=== PATIENT | male | born 1945 | race Caucasian/White ===

== ENCOUNTER 2021-01-27 09:02 | Outpatient (CLI) | payer MEDICARE, OTHER, SELFPAY | END 2021-01-27 09:03 | disposition home or self-care (01) | LOC: SLEEP 09:04 | PROVIDERS: PCP Internal Medicine; Visit Provider Internal Medicine | DX: G47.10 Hypersomnia, unspecified (principal) | CPT/HCPCS: G0399 ==

== ENCOUNTER 2021-08-16 10:19 | Emergency (ER) | payer MEDICARE, SELFPAY ==
[2021-08-16 10:25] VITALS: BP 170/114; PULSE 90; RESP 18; TEMP 36.4; O2SAT 96; BMI 26.4
[2021-08-16 10:54] LABS: Bilirubin Urine Neg (Negative); Blood Urine 3+ (Negative); Glucose Urine UA Norm (Normal); Ketones Urine Negative (Negative); Leukocyte Esterase Urine Negative (Negative); Nitrate Urine Negative (Negative); Protein Urine Trace (Negative); Specific Gravity, Urine 1.005 (1.005-1.030); Urine Appearance Bloody (CLEAR); Urine Color Red (Yellow); Urobilinogen Urine Norm (Negative); pH Urine 6.5 (5-7)
[2021-08-16 10:55] LABS: Add Urine Microscopic? YES
[2021-08-16 10:56] LABS: RBC Urine TOO NUMEROUS TO CNT /hpf (0-2)
[2021-08-16 10:57] LABS: Add Urine Culture? Yes; WBC Urine RARE /hpf (0-5)
--- NOTE | 2021-08-16 11:25 | ED_ITS ---
HPI - Male Genitourinary General: Chief complaint: Urogenital-Male Stated complaint: Urinating blood for 2 days Time Seen by Provider: 08/16/21 11:25 History of Present Illness: Mr. Gomes is a 76-year-old gentleman with significant past medical history of renal cancer status post nephrectomy a number of years ago who presents to the emergency department due to hematuria. He first noticed symptoms subacutely approximately 2 days ago. Since that time he has had dark red urine associated with mild persistent stinging sensation at the distal end of his penis. He is not on anticoagulation and denies similar episodes in the past. He cannot think of any specific provoking events or factors. He does have a history of BPH as well on medications. No other specific changes in health, exacerbating, or alleviating factors identified. Onset (ago): day(s) Duration: constant Severity: moderate Associated symptoms: Reports no associated symptoms Review of Systems General: Reports: 10 or more systems reviewed and unremarkable except in HPI and below PFSH ED PFSH: Medical History Gross hematuria Family History Father , AT 83 Heart attack Mother , IN HER 70'S Diabetes Social History Smoking and tobacco status: never smoked Alcohol intake: never Marital status: Current occupational status: retired History of recent travel: No Physical Exam Const: COMMON NORMALS: alert GENERAL APPEARANCE: cooperative and well developed HENMT: COMMON NORMALS: normocephalic and atraumatic HEAD & SCALP: normocephalic and atraumatic Eye: COMMON NORMALS: conjunctivae normal CONJUNCTIVA: Yes conjunctivae normal SCLERA: sclerae normal Neck/C-Spine: COMMON NORMALS: supple GENERAL: Yes trachea midline Resp: COMMON NORMALS: normal respiratory effort EFFORT & INSPECTION: Yes able to speak in complete sentences Cardio: COMMON NORMALS: regular rate and regular rhythm RATE: regular rate RHYTHM: regular rhythm GI: COMMON NORMALS: Soft to palpation PALPATION: Yes Soft to palpation and No Tenderness to palpation present (GI) PERCUSSION: normal to percussion : COMMON NORMALS: Yes Testes normal PENIS: normal penis Extremity: GENERAL: Yes normal exam except as noted and No edema Neuro: COMMON NORMALS: moves all extremities SENSORIUM/ORIENTATION: Yes alert and No Orientation impaired Psych: COMMON NORMALS: mental status grossly normal and Normal thought process present THOUGHT PROCESS: Normal thought process present Course ED course: - Patient was seen and evaluated by me at bedside -Vital signs obtained - Initial evaluation notable for exam as above - Labs notable for normal hemoglobin. Urinalysis with blood noted, no evidence of infection - Imaging notable for normal right kidney without evidence of hydronephrosis or other acute pathology, no significant clot burden noted in bladder -Based on findings I do not believe that patient needs Ayon catheter or irrigation. I discussed case with Dr. Philippe of the urology service, he is able to see patient early this week. - Upon serial reexamination after treatment the patient was similar - Based on patient history, evaluation, and testing as interpreted the most li iraida cause of the patient's condition is gross hematuria. Patient did express concern regarding hypertension even though he has been taking his medications, this may be contributing to continued bleeding and I will add amlodipine to his medication regimen. - The results of ED evaluation were discussed with the patient including prescriptions and/or symptomatic cares (if applicable) including appropriate and responsible use, followup plan, and return precautions. The patient verbalized understanding and felt safe for discharge. - Patient discharged in satisfactory condition. Note: Click bubbles or prepopulated hodges in note writing are used for assistance with data collection and billing and are inherently more limited than narrative and other text portions of this note. Please use narrative for additional clinical history and defer to narrative/free test for any case of contradictory information. If information appears in only free text or click bubble it should be considered present or absent as reported. Please contact note mortgage or loan underwriter for clarifications of clinical information or contradictory information. MDM is a brief summary, contradictory or erroneous seeming information should be clarified and full note should be reviewed. Vital Signs: Vital signs: Vital Signs Temperature 97.5 F L 08/16/21 10:25 Pulse Rate 76 08/16/21 14:02 Respiratory Rate 16 08/16/21 14:02 Blood Pressure 182/118 08/16/21 14:02 Pulse Oximetry 94 08/16/21 14:02 MDM - Male Medical Decision Making 76-year-old gentleman with history of nephrectomy remotely presenting with hematuria. No evidence of acute clot retention or significant abdominal discomfort. Ultrasound without evidence of hydronephrosis or significant clot burden. Discussed with urology, patient to have close outpatient follow-up. Satisfactory for discharge. Medical Records I reviewed the patient's medical records. Lab Data I reviewed the patient's lab results. : 08/16/21 11:47 08/16/21 11:47 Radiology Impressions Renal Ultrasound 08/16/21 11:40 IMPRESSION: Unremarkable right kidney. Left kidney surgically removed. Laboratory Results WBC 8.7 10^3/uL (4.0-10.0) 08/16/21 11:47 RBC 5.23 10^6/uL (4.1-5.3) 08/16/21 11:47 Hgb 16.2 g/dL (11.7-16.6) 08/16/21 11:47 Hct 48.4 % (42.0-52.0) 08/16/21 11:47 MCV 92.5 fl (80-94) 08/16/21 11:47 MCH 31.0 pg (28.0-34.0) 08/16/21 11:47 MCHC 33.5 g/dL (30.0-36.0) 08/16/21 11:47 RDW 12.7 % (12.1-15.1) 08/16/21 11:47 Plt Count 191 10^3/cmm (130-400) 08/16/21 11:47 MPV 10.9 fL (7.4-10.4) H 08/16/21 11:47 Neut % (Auto) 73.1 % 08/16/21 11:47 Lymph % (Auto) 15.8 % 08/16/21 11:47 [place] % (Auto) 6.9 % 08/16/21 11:47 Eos % (Auto) 2.9 % 08/16/21 11:47 Baso % (Auto) 0.5 % 08/16/21 11:47 Neut # (Auto) 6.36 10^3/uL (1.8-7.7) 08/16/21 11:47 Lymph # (Auto) 1.4 10^3/uL (0.8-4.8) 08/16/21 11:47 [place] # (Auto) 0.6 10^3/uL (0.2-0.9) 08/16/21 11:47 Eos # (Auto) 0.3 10^3/uL (0.0-0.8) 08/16/21 11:47 Baso # (Auto) 0.0 10^3/uL (0.0-0.1) 08/16/21 11:47 Nucleated RBC % (auto) 0 % 08/16/21 11:47 Nucleated RBCs # 0.0 /100WBC 08/16/21 11:47 PT 13.30 SECONDS (12.1-14.9) 08/16/21 11:47 INR 0.99 (0.8-1.2) 08/16/21 11:47 Sodium 139 mmol/L (136-145) 08/16/21 11:47 Potassium 4.7 mmol/L (3.5-5.1) 08/16/21 11:47 Chloride 106 mmol/L (98-107) 08/16/21 11:47 Carbon Dioxide 26 mmol/L (22-29) 08/16/21 11:47 Anion Gap 11.7 (5-19) 08/16/21 11:47 BUN 15 mg/dL (8-23) 08/16/21 11:47 Creatinine 1.1 mg/dL (0.7-1.2) 08/16/21 11:47 GFR Calculation Not Reportable 08/16/21 11:47 Glucose 107 mg/dL (65-115) 08/16/21 11:47 Calculated Osmolality 289 mOsm/kg (285-295) 08/16/21 11:47 Calcium 8.8 mg/dL (8.5-10.5) 08/16/21 11:47 Urine Color Red (Yellow) 08/16/21 10:32 Urine Appearance Bloody (CLEAR) A 08/16/21 10:32 Urine pH 6.5 (5-7) 08/16/21 10:32 Ur Specific [place] 1.005 (1.005-1.030) 08/16/21 10:32 Urine Protein Trace (Negative) 08/16/21 10:32 Urine Glucose (UA) Norm (Normal) 08/16/21 10:32 Urine Ketones Negative (Negative) 08/16/21 10:32 Urine Blood 3+ (Negative) H 08/16/21 10:32 Urine Nitrate Negative (Negative) 08/16/21 10:32 Urine Bilirubin Neg (Negative) 08/16/21 10:32 Urine Urobilinogen Norm mg/dL (Negative) 08/16/21 10:32 Ur Leukocyte Esterase Negative (Negative) 08/16/21 10:32 Urine RBC Too numerous to cnt /hpf (0-2) H 08/16/21 10:32 Urine WBC Rare /hpf (0-5) 08/16/21 10:32 Ur Squamous Epith Cells None /hpf (0-5) 08/16/21 10:32 Amorphous Sediment Not Reportable 08/16/21 10:32 Urine Bacteria None /hpf (NONE) 08/16/21 10:32 Discharge Plan Discharge Patient Disposition: Home Clinical Impression: Hematuria Condition: Stable Prescriptions: New Norvasc 5 mg tablet 5 mg PO DAILY Qty: 30 0RF No Action lubricants Gel 1 ea topical ONCE Qty: 1 0RF levothyroxine [Euthyrox] 125 mcg tablet 125 mcg PO DAILY 0RF allopurinol 300 mg tablet 300 mg PO DAILY 0RF alfuzosin 10 mg tablet extended release 24 hr 10 mg PO DAILY 0RF Rx Instructions: administer after the same meal each day lisinopril 20 mg tablet 20 mg PO DAILY 0RF sulfamethoxazole-trimethoprim 800-160 mg tablet 1 tab PO DAILY Qty: 30 1RF finasteride 5 mg tablet 5 mg PO QDAY Qty: 90 3RF Discharge Orders: Discharge ED (Routine); Ordered 08/16/21 Ordered By: Jesús Shetty Referrals: Torin Fisher, [Primary Care Provider] - Discharge Diet: Usual diet Discharge Activity: Resume usual activity Patient Instructions: Hematuria (ED) Activity Restrictions/Additional Instructions: Thank you for visiting the emergency department. You were seen and evaluated fo r blood in urine. The exact cause of your symptoms is unclear however as discussed does not appear to need inpatient management at this time. I discussed the case with Dr. Philippe, please call his office Tuesday morning for follow-up appointment and let them know that you were seen in the emergency department and that I discussed your care with Dr. Philippe. [phone] or [phone] Please return to the emergency department for chest pain, shortness of breath, lightheadedness, syncope, or anything else that you are concerned about and feel needs emergency department evaluation Coding Level of Care Code ED Pet Ambassador for Sheila Wilkerson
--- NOTE | 2021-08-16 11:40 | USR_ITS ---
PROCEDURE INFORMATION: Exam: US Retroperitoneal; Complete; Kidneys and Bladder Exam date and time: 08/16/2021 11:51 AM Age: 76 years old Clinical indication: Other: Hematuria; Additional info: Hematuria x2 days, solitary kidney (hx cancer/nephrectomy) TECHNIQUE: Imaging protocol: Real-time ultrasound of the retroperitoneum with image documentation. Complete exam focused on the kidneys and bladder. COMPARISON: US renal BI* [id number] 12/10/2020 8:10 AM FINDINGS: Right kidney: Right kidney is unremarkable with no evidence for hydronephrosis, calculi, or mass. Right kidney measures 13.1 x 5.6 x 5.3 cm. Left kidney: Left kidney surgically removed. Urinary bladder: Unremarkable. US/US renal BI with PV bladder IMPRESSION: Unremarkable right kidney. Left kidney surgically removed.
[2021-08-16 11:50] VITALS: BP 142/107; PULSE 80; RESP 16; O2SAT 97
[2021-08-16 12:05] LABS: Basophils % 0.5 %; Eosinophils # 0.3 10^3/uL (0.0-0.8); Eosinophils % 2.9 %; Hematocrit 48.4 % (42.0-52.0); Hemoglobin 16.2 g/dL (11.7-16.6); Lymphocytes # 1.4 10^3/uL (0.8-4.8); Lymphocytes % 15.8 %; Mean Corpuscular HGB Conc 33.5 g/dL (30.0-36.0); Mean Corpuscular Volume 92.5 fl (80-94); Mean Platelet Volume 10.9 fL (7.4-10.4); Monocytes # 0.6 10^3/uL (0.2-0.9); Monocytes % 6.9 %; Neutrophils # 6.36 10^3/uL (1.8-7.7); Neutrophils % 73.1 %; Nucleated Red Blood Cells % 0 %; Platelet Count 191 10^3/cmm (130-400); Red Blood Count 5.23 10^6/uL (4.1-5.3); Red Cell Distribution Width 12.7 % (12.1-15.1); White Blood Count 8.7 10^3/uL (4.0-10.0)
[2021-08-16 12:27] LABS: Anion Gap 11.7 (5-19); Blood Urea Nitrogen 15 mg/dL (8-23); Calcium 8.8 mg/dL (8.5-10.5); Carbon Dioxide 26 mmol/L (22-29); Chloride 106 mmol/L (98-107); Glucose 107 mg/dL (65-115); Osmolality Calculated 289 mOsm/kg (285-295); Potassium 4.7 mmol/L (3.5-5.1); Sodium 139 mmol/L (136-145)
[2021-08-16 12:53] LABS: INR 0.99 (0.8-1.2)
[2021-08-16 14:02] VITALS: BP 182/118; PULSE 76; RESP 16; O2SAT 94
[2021-08-16] MEDS: amlodipine 5 mg Tablet PO (14:02)
--- NOTE | 2021-08-18 15:14 | DCPLANNER ---
Addendum entered by Suri Jimenez 08/20/21 15:21: Patient had a follow up appointment scheduled with Dr. Philippe - patient did attend appointment. Original Note: cattle manager had message to schedule a follow up appointment for patient with urology. cattle manager sent patients information to the front office staff at urology. Patients information will be printed and reviewed. Clinic will call patient with appointment information.
== END 2021-08-16 14:03 | disposition home or self-care (01) ==
PROVIDERS: Physician Assistant; Emergency Provider Emergency Medicine; PCP Internal Medicine
DX: R31.9 Hematuria, unspecified (principal)
CPT/HCPCS: 76770; 76857; 80048; 81001; 85025; 85610; 87086; 99283

== ENCOUNTER → 2021-08-18 15:13 | Outpatient (BNVA) | payer MEDICARE, SELFPAY | PROVIDERS: PCP Internal Medicine; Visit Provider Urology | DX: N40.1 Benign prostatic hyperplasia with lower urinary tract symptoms (principal); Z85.528 Personal history of other malignant neoplasm of kidney; R31.0 Gross hematuria; R33.8 Other retention of urine | CPT/HCPCS: 52000; 81003; 88112; 99214 ==

== ENCOUNTER 2021-09-01 07:21 | Outpatient (CLI) | payer MEDICARE, SELFPAY ==
[2021-09-01] MEDS: iodixanol 320 mg/mL 100mL Btl IV (08:05)
--- NOTE | 2021-09-01 08:45 | CT_ITS ---
WS: [id number] CT ABDOMEN AND PELVIS WITH AND WITHOUT CONTRAST HISTORY: Gross Hematuria, prior LEFT nephrectomy for cancer. TECHNIQUE: Unenhanced 5 mm axial imaging first performed through the abdomen. Post contrast imaging t hrough the abdomen and pelvis. Oral contrast has not been provided. Sagittal and coronal reformats a re submitted. All CT scans at [facility] use at least one of these dose optimization techniqu es: automated exposure control; mA and/or kV adjustment per patient size (includes targeted exams whe re dose is matched to clinical indication); or iterative reconstruction. CONTRAST: Visipaque 320; 95 mL IV. DLP: 3324.63 mGy.cm COMPARISON: 11/03/2012, renal ultrasound 08/16/2021. Emphysematous changes at the lung bases with bulla and blebs. Progressed since the prior examination from 2012. No mass. 5 mm nodule anterior RIGHT middle lobe. New since the prior study from 2012. Hear t is normal size. Small hiatal hernia. Numerous scattered low-attenuation nodules throughout the liver with minimal increase in size since 013. Largest in the LEFT lobe of the liver measures 11 mm. Normal portal vein. Normal gallbladder and spleen. No adrenal mass. LEFT kidney has been surgically removed. No recurrent mass at the renal bed . RIGHT kidney: RIGHT kidney is normal size. No significant perinephric stranding. No calcifications or obstruction. No solid mass or abnormal enhancement. There are a few very tiny, 2 to 3 mm hypodensiti es within the cortex which are too small to characterize. No uroepithelial lesion in the RIGHT ureter . Urinary bladder: Abnormal appearance of the urinary bladder. There is a Ayon catheter in position. T he urinary bladder appears heterogeneous and lobulated with variable density. On the delayed imaging the contrast outlines a filling defect in the bladder. This may all be due to a very markedly enlarge d prostate gland which does encroach into the bladder. There is mild diffuse bladder wall thickening up to 10 mm. Prostate gland measures 6.2 x 6.8 cm and extends over a length of 5.9 cm. Mild atherosclerosis aorta. No aneurysm. No GI tract obstruction. Stomach and small bowel are negative. Prior appendectomy. Numerous diverticu la in the distal colon. No acute diverticulitis. Cecum is patulous and distended with fluid. No destructive bone lesions. CT/CT abdomen pelvis wo/w [id number] IMPRESSION: 1. Status post LEFT nephrectomy. No recurrent mass or nodule at the renal bed. 2. No RIGHT renal mass or obstruction. No uroepithelial lesion in the RIGHT ur eter. 3. Markedly enlarged prostate gland encroaching into the bladder with diffuse bladder wall thickening. Changes are probably all due to prostate gland enlarge ment and hypertrophic changes and a letter obstruction. Ayon catheter remains in place. 4. Prior appendectomy. 5. Stable hypodensities in the liver are probably cysts. 6. Extensive diverticulosis without acute diverticulitis. 7. New anterior RIGHT lower lung, probable middle lobe, 5 mm noncalcified nodu le. Recommend follow-up chest CT in 6 months.
== END 2021-09-01 07:22 | disposition home or self-care (01) ==
PROVIDERS: PCP Internal Medicine; Visit Provider Urology
DX: R31.0 Gross hematuria (principal); N40.1 Benign prostatic hyperplasia with lower urinary tract symptoms; R33.8 Other retention of urine; Z85.528 Personal history of other malignant neoplasm of kidney
CPT/HCPCS: 74178; 99214

== ENCOUNTER → 2021-10-15 14:51 | Outpatient (BNVA) | payer MEDICARE, SELFPAY | PROVIDERS: PCP Internal Medicine; Visit Provider Urology | DX: N40.1 Benign prostatic hyperplasia with lower urinary tract symptoms (principal); R33.8 Other retention of urine; N39.0 Urinary tract infection, site not specified; R31.0 Gross hematuria; Z85.528 Personal history of other malignant neoplasm of kidney; N45.1 Epididymitis | CPT/HCPCS: 81003; 99213 ==

== ENCOUNTER → 2022-01-12 14:08 | Outpatient (BNVA) | payer MEDICARE, SELFPAY | PROVIDERS: PCP Internal Medicine; Visit Provider Urology | DX: R33.8 Other retention of urine (principal); N45.1 Epididymitis; N40.1 Benign prostatic hyperplasia with lower urinary tract symptoms; R97.20 Elevated prostate specific antigen [PSA]; Z85.528 Personal history of other malignant neoplasm of kidney | CPT/HCPCS: 51798; 99214 ==

== ENCOUNTER → 2022-07-15 10:45 | Outpatient (BNVA) | payer MEDICARE, SELFPAY | PROVIDERS: PCP Internal Medicine; Visit Provider Urology | DX: R33.8 Other retention of urine (principal) | CPT/HCPCS: 51741; 51798; 81003; 99214 ==

== ENCOUNTER → 2024-02-01 08:53 | Outpatient (BNVA) | payer MEDICARE, SELFPAY | PROVIDERS: PCP Internal Medicine; Visit Provider Podiatrist Foot & Ankle Surgery | DX: M79.672 Pain in left foot (principal); M72.2 Plantar fascial fibromatosis | CPT/HCPCS: 73630; 99203 ==

== ENCOUNTER → 2024-02-22 15:17 | Outpatient (BNVA) | payer MEDICARE, SELFPAY | PROVIDERS: PCP Internal Medicine; Visit Provider Podiatrist Foot & Ankle Surgery | DX: M72.2 Plantar fascial fibromatosis (principal) | CPT/HCPCS: 99213 ==

== ENCOUNTER 2025-02-22 12:44 | Outpatient (CLI) | payer MEDICARE, SELFPAY ==
--- NOTE | 2025-02-22 12:50 | CT_ITS ---
WS: [id number] CT ABDOMEN AND PELVIS WITH CONTRAST HISTORY: VENTRAL INCISIONAL HERNIA TECHNIQUE: Imaging performed of the abdomen and pelvis with IV contrast. Single phase imaging of the abdomen. Coronal and sagittal reformats are submitted. All CT scans at [facility] use at least one of these dose optimization techniques: automated exposure control; mA and/or kV adjustment per patient size (includes targeted exams where dose is matched to clinical indication); or iterative reconstruction. IV CONTRAST: Omnipaque 350; 100 mL IV. Oral contrast: Yes. DLP: 410.63 mGy.cm COMPARISON: 09/01/2021 Lower thorax: Thin wall cysts noted at the lung bases. Heart is normal size. Small hiatal hernia. Liver/biliary system: Normal size liver with a few scattered hypodensities which are stable. No intrahepatic duct dilatation. Gallbladder: Normal. No gallstones or wall thickening. No pericholecystic fluid. Pancreas: Pancreatic duct is dilated which is new compared to the prior study. Very slight change in attenuation in the pancreatic head measures 11 mm. Common bile duct is not dilated. Spleen: Normal size spleen. No mass or infarct. Adrenal glands: Normal. Right kidney: Normal. Left kidney: Status post LEFT nephrectomy. No mass in the renal bed. Aorta: Mild atherosclerosis with no aneurysm. Lymphadenopathy: None. Free fluid: None. GI tract: No GI tract obstruction. Stomach is moderately well distended. No small bowel obstruction. Small lipoma in the duodenum. Lipoma measures 9 mm. Prior appendectomy. Distal colon diverticulosis. Numerous diverticula in the sigmoid colon. No evidence for acute diverticulitis. Abdominal wall: No ventral abdominal wall hernia. Pelvis: Prostate gland is enlarged encroaching into the urinary bladder. Ayon catheter is no longer present within the bladder. There is asymmetric enhancement in the floor the urinary bladder greatest on the RIGHT which may be the prostate gland extending into the bladder but this is new since the prior study. Fat-containing bilateral inguinal canals. Bones: Degenerative changes in the lumbar spine. No destructive bone lesions. CT/CT abdomen pelvis w con* [id number] IMPRESSION: 1. New pancreatic duct dilatation measuring just greater than 3 mm. Very minim al change in attenuation at the pancreatic head. Recommend follow-up MRI pancre as with and without contrast. Pancreatic head neoplasm needs to be excluded. 2. Status post LEFT nephrectomy. No recurrent mass at the renal bed. 3. Advanced sigmoid diverticulosis without acute diverticulitis. 4. Prostate gland is encroaching into the urinary bladder. There is asymmetric enhancement involving the prostate encroachment on the RIGHT. Recommend follow -up with urology. Neoplasm is not excluded. 5. Patent bilateral inguinal canals containing fat only. 6. No ventral abdominal wall incisional hernia.
[2025-02-22] MEDS: iohexol 350 mg/mL 500 mL Btl (per mL) IV (13:11)
[2025-02-22] MEDS: iohexol 350 mg/mL 500 mL Btl (per mL) PO (13:12)
[2025-02-22 14:01] LABS: Blood Urea Nitrogen 11 mg/dL (8-23)
== END 2025-02-22 12:45 | disposition home or self-care (01) ==
LOC: RAD 12:45
PROVIDERS: PCP Electrodiagnostic Medicine; Visit Provider Electrodiagnostic Medicine
DX: K43.2 Incisional hernia without obstruction or gangrene (principal); J98.4 Other disorders of lung; K44.9 Diaphragmatic hernia without obstruction or gangrene; R93.2 Abnormal findings on diagnostic imaging of liver and biliary tract; K86.89 Other specified diseases of pancreas; Z90.5 Acquired absence of kidney; I70.0 Atherosclerosis of aorta; Z90.49 Acquired absence of other specified parts of digestive tract; K57.30 Diverticulosis of large intestine without perforation or abscess without bleeding; N40.0 Benign prostatic hyperplasia without lower urinary tract symptoms; N32.89 Other specified disorders of bladder; M51.369 Other intervertebral disc degeneration, lumbar region without mention of lumbar back pain or lower extremity pain; D17.79 Benign lipomatous neoplasm of other sites; K40.20 Bilateral inguinal hernia, without obstruction or gangrene, not specified as recurrent
CPT/HCPCS: 74177; 82565; 84520

== ENCOUNTER 2025-03-19 08:35 | Outpatient (CLI) | payer MEDICARE, SELFPAY ==
--- NOTE | 2025-03-19 08:49 | MR_ITS ---
WS: [id number] MRI ABDOMEN WITH AND WITHOUT CONTRAST. COMPARISON: 02/22/2025 Multiplanar, multisequence imaging is performed with and without contrast. Sagittal and axial T1 fat sat sequences post-MultiHance 16 cc IV. History: Left-sided abdominal pain. Pancreatic duct dilated noted on prior CT 02/22/2025. Soft tissue mass centered in the pancreatic head measures 4.0 x 2.7 x 2.7 cm. Mass is obstructing the pancreatic duct. Duct is dilated to 4.5 mm. The body and tail of the pancreas are atrophied. Pancreatic mass is inseparable from the duodenal C-loop. There is no obstruction of the duodenum. 10 mm celiac axis lymph node. There are a few additional smaller lymph nodes in the celiac axis. Cardiac size is normal. No pleural effusions. Normal size liver 10 mm slightly lobulated T2 hyperintense mass in the RIGHT lobe of the liver does not enhance. There are a few additional nonenhancing T2 hyperintense lesions in the LEFT lobe of the liver consistent with cysts. No evidence for metastatic disease within the liver. Mild hepatic steatosis. Normal portal vein. Normal size spleen. No adrenal mass. Visualized RIGHT kidney is negative. Prior LEFT nephrectomy. No ascites or adenopathy. Normal size aorta with mild atherosclerosis. MR/MR abdomen wo/w con* [id number] IMPRESSION: 1. Pancreatic head mass measures 4.0 x 2.7 x 2.7 cm. Mass is obstructing the p ancreatic duct with distal pancreatic atrophy. Highly suspicious for pancreatic neoplasm. 2. Indeterminate 10 mm celiac axis lymph node. 3. Prior LEFT nephrectomy. 4. Hepatic cysts x3. 5. No metastatic disease in the liver or adrenal glands.
[2025-03-19] MEDS: gadobenate dimeglumine 20 mL vial 16 ML IV (09:18)
== END 2025-03-19 08:36 | disposition home or self-care (01) ==
LOC: RAD 08:37
PROVIDERS: PCP Electrodiagnostic Medicine; Visit Provider Electrodiagnostic Medicine
DX: K86.89 Other specified diseases of pancreas (principal); R59.0 Localized enlarged lymph nodes; Z90.5 Acquired absence of kidney; K76.89 Other specified diseases of liver; K76.0 Fatty (change of) liver, not elsewhere classified; I77.4 Celiac artery compression syndrome
CPT/HCPCS: 74183; A9577